=== PATIENT | female | born 1995 | race Two or more races ===

== ENCOUNTER 2020-06-15 15:47 | Outpatient (CLI) | payer OTHER | END 2020-06-15 15:53 | disposition home or self-care (01) | LOC: SONOGRAMA 15:47 | PROVIDERS: ATTEND Obstetrics & Gynecology | DX: N60.01 Solitary cyst of right breast (principal); N91.1 Secondary amenorrhea ==

== ENCOUNTER 2021-02-28 11:47 | Emergency (ER) | payer OTHER ==
[~2021-02-28] VITALS: Ht 160 cm; Wt 86.6 kg
[2021-02-28] MEDS ORDERED: PRENATABS RX T1 EACH (12:01)
== END 2021-02-28 16:20 | disposition home or self-care (01) ==
LOC: ER 11:47
DX: R51.9 Headache, unspecified (principal); Z11.52 Encounter for screening for COVID-19

== ENCOUNTER 2021-07-16 07:45 | Inpatient (IN) | payer OTHER ==
[~2021-07-16] VITALS: Ht 160 cm; Wt 94.8 kg
[~2021-07-16 07:45] MED LIST: PRENATABS RX T1 EACH
== END 2021-07-21 12:03 | disposition home or self-care (01) | DRG 785 ==
LOC: O/R 07-18 06:45 → OB/GYN 07-18 06:45
PROVIDERS: ADMIT Obstetrics & Gynecology; ATTEND Obstetrics & Gynecology
PROC: 0UB70ZZ Excision of Bilateral Fallopian Tubes, Open Approach (ICD-10-PCS; 2021-07-18)
PROC: 4A1HXFZ Monitoring of Products of Conception, Cardiac Rhythm, External Approach (ICD-10-PCS; 2021-07-18)
PROC: 10D00Z1 Extraction of Products of Conception, Low, Open Approach (ICD-10-PCS; principal; 2021-07-18 13:45)
DX: O34.211 Maternal care for low transverse scar from previous cesarean delivery (principal); Z30.2 Encounter for sterilization; O99.824 Streptococcus B carrier state complicating childbirth; Z53.29 Procedure and treatment not carried out because of patient's decision for other reasons; Z3A.37 37 weeks gestation of pregnancy; Z37.0 Single live birth